=== PATIENT | female | born 1985 | race African-American/Black ===

== ENCOUNTER 2024-02-27 16:24 | Emergency (ER) | payer SELFPAY ==
[2024-02-27 16:31] VITALS: BMI 28.0
[2024-02-27] MEDS ORDERED: ACETAMINOPHEN INJECTION 100 ML IVPB ONE (18:13)
[2024-02-27] MEDS: SODIUM CHLORIDE 0.9% 500 ML INFUS.BAG IV ONE (18:16)
[2024-02-27] MEDS: ACETAMINOPHEN 1000 MG/100 ML BAG IVPB ONE (18:16)
[2024-02-27 18:22] LABS: BASO % 0.2 % (0-2.0); EOS % 0.4 % (0-4.5); HEMATOCRIT 35.4 % (32.4-45.2); HEMOGLOBIN 12.2 GM/dL (10.7-15.3); LYMPH % 4.4 % (8-40); MCH 29.9 pg (25.7-33.7); MCHC 34.3 g/dl (32.0-36.0); MEAN PLT VOLUME 8.3 fl (7.5-11.1); MONO % 5.1 % (3.8-10.2); NEUT % 89.9 % (42.8-82.8); PLATELET COUNT 177 10^3/uL (134-434); RBC 4.07 M/mm3 (3.60-5.2); RDW 14.2 % (11.6-15.6); WHITE BLOOD COUNT 7.9 K/mm3 (4.0-10.0)
[2024-02-27 18:32] LABS: INR 0.99 (0.83-1.09); PROTHROMBIN TIME (PATIENT) 11.4 SEC (9.7-13.0)
[2024-02-27 18:35] LABS: ACTIVATED PTT 32.6 SECONDS (25.2-36.5)
[2024-02-27 18:46] LABS: THROAT:GRP A STREP NOT DETECTED (NOTDETECTED)
[2024-02-27 18:47] LABS: ALBUMIN 3.9 g/dl (3.4-5.0); BLOOD UREA NITROGEN 13.6 mg/dL (7-18)
[2024-02-27 18:51] LABS: TOT PROT 7.5 g/dl (6.4-8.2)
[2024-02-27 18:52] LABS: BILIRUBIN,TOTAL 0.3 mg/dL (0.2-1)
[2024-02-27 21:20] VITALS: BP 116/73; PULSE 93; RESP 18; TEMP 98.8
== END 2024-02-27 21:43 | disposition home or self-care (01) ==
LOC: JERFT 16:24
PROC: 3E033NZ Introduction of Analgesics, Hypnotics, Sedatives into Peripheral Vein, Percutaneous Approach (ICD-10-PCS; principal; 2024-02-27)
DX: R07.9 Chest pain, unspecified (principal); R06.02 Shortness of breath; R50.9 Fever, unspecified; M79.10 Myalgia, unspecified site; Z20.822 Contact with and (suspected) exposure to COVID-19
CPT/HCPCS: 0241U-QW; 36415; 71046-TC-FY; 71275-TC; 80053; 84439; 84443; 84484; 84703; 85025; 85379; 85610; 85730; 87651; 93005; 93010; 99285-25; J0131; Q9967